=== PATIENT | female | born 1965 | race Hispanic/Latino ===

== ENCOUNTER 2023-12-15 13:43 | Emergency (ER) | payer OTHER ==
[~2023-12-15] VITALS: Ht 162.6 cm; Wt 70.3 kg
[2023-12-15] MEDS: DIPHENHYDRAMINE HCL 25 MG CAPSULE PO ONE (14:23)
[2023-12-15] MEDS: ONDANSETRON ODT 4MG TAB SL ONE (14:24)
[2023-12-15] MEDS: FAMOTIDINE 20MG TAB PO ONE (14:24)
[2023-12-15] MEDS: PREDNISONE 20 MG TABLET PO ONE (14:24)
[2023-12-15] MEDS ORDERED: ONDA-243 PO (16:05)
[2023-12-15] MEDS ORDERED: DIPH50 PO (16:05)
[2023-12-15] MEDS ORDERED: PRED50TA2 PO (16:05)
[2023-12-15] MEDS ORDERED: LORA10TA7 PO (16:05)
[2023-12-15 16:08] VITALS: BP 132/77; PULSE 88; RESP 16; O2SAT 97
== END 2023-12-15 16:49 | disposition home or self-care (01) ==
LOC: EDH 13:43
DX: T63.441A Toxic effect of venom of bees, accidental (unintentional), initial encounter (principal); Y92.89 Other specified places as the place of occurrence of the external cause
CPT/HCPCS: 99284; Q0163